=== PATIENT | female | born 1980 | race Caucasian/White ===

== ENCOUNTER 2017-03-18 13:38 | Emergency (ER) | payer OTHER, MEDICAID ==
[2017-03-18 13:48] VITALS: BP 124/76; PULSE 85; RESP 18; TEMP 98.2; O2SAT 95
--- NOTE | 2017-03-18 14:00 | EDPHY ---
H & P Stated Complaint: right ankle pain denies known trauma , yest night Time Seen by Provider: 03/18/17 13:49 HPI/ROS: CHIEF COMPLAINT: Right ankle pain HISTORY OF PRESENT ILLNESS: Patient is a 37-year-old obese female who comes to the emergency department complaining of right anterior ankle pain. She states that she does not remember injuring it in any particular way but that it began hurting yesterday and today she stayed home from work trying to elevated. She has been taking Tylenol and ibuprofen with moderate improvement. No swelling. No erythema. No fever. She does have a history of arthritis. REVIEW OF SYSTEMS: Constitutional: denies: chills, fever, recent illness, recent injury EENTM: denies: blurred vision, double vision, nose congestion Respiratory: denies: cough, shortness of breath Cardiac: denies: chest pain, irregular heart rate, lightheadedness, palpitations Gastrointestinal/Abdominal: denies: abdominal pain, diarrhea, nausea, vomiting, blood streaked stools Genitourinary: denies: dysuria, frequency, hematuria, pain Musculoskeletal: See HPI Skin: denies: lesions, rash, jaundice, bruising Neurological: denies: headache, numbness, paresthesia, tingling, dizziness, weakness Hematologic/Lymphatic: denies: blood clots, easy bleeding, easy bruising Immunologic/allergic: denies: HIV/AIDS, transplant EXAM: GENERAL: Well-appearing, well-nourished and in no acute distress. HEAD: Atraumatic, normocephalic. EYES: Pupils equal round and reactive to light, extraocular movements intact, sclera anicteric, conjunctiva are normal. ENT: TMs normal, nares patent, oropharynx clear without exudates. Moist mucous membranes. NECK: Normal range of motion, supple without lymphadenopathy or JVD. LUNGS: Breath sounds clear to auscultation bilaterally and equal. No wheezes rales or rhonchi. HEART: Regular rate and rhythm without murmurs, rubs or gallops. ABDOMEN: Soft, nontender, normoactive bowel sounds. No guarding, no rebound. No masses appreciated. BACK: No CVA tenderness, no spinal tenderness, step-offs or deformities EXTREMITIES: Pain to the anterior aspect of right ankle. No bony tenderness. No swelling or deformity. Mild pain with extension of the ankle. Normal pulses and sensation distally. NEUROLOGICAL: Cranial nerves II through XII grossly intact. Normal speech, normal gait. 5/5 strength, normal movement in all extremities, normal sensation PSYCH: Normal mood, normal affect. SKIN: Warm, dry, normal turgor, no visible rashes or lesions. Source: Patient Exam Limitations: No limitations - Personal History LMP (Females 10-55): Hysterectomy Current Tetanus Diphtheria and Acellular Pertussis (TDAP): Yes Tetanus Vaccine Date: 2014 - Medical/Surgical History Hx Asthma: No Hx Chronic Respiratory Disease: No Hx Diabetes: No Hx Cardiac Disease: No Hx Renal Disease: No Hx Cirrhosis: No Hx Alcoholism: No Hx HIV/AIDS: No Hx Splenectomy or Spleen Trauma: No Other PMH: tubal ligation, hysterectomy, Gall bladder removal, 1 kidney diverticulitis - Family History Significant Family History: No pertinent family hx - Social History Smoking Status: Never smoked Alcohol Use: Sober Drug Use: None Constitutional: Initial Vital Signs Temperature (C) 36.8 C 03/18/17 13:41 Heart Rate 85 03/18/17 13:41 Respiratory Rate 18 03/18/17 13:41 Blood Pressure 124/76 H 03/18/17 13:41 O2 Sat (%) 95 03/18/17 13:41 O2 Delivery Mode Room Air Allergies/Adverse Reactions: No Known Allergies Allergy (Verified 03/18/17 13:48) Home Medications: Medication Instructions Recorded Multivitamins [Multivitamin (*)] 1 each PO DAILY 07/09/14 Medical Decision Making - Diagnostics Imaging: Discussed imaging studies w/ order desk caller Radiologist ED Course/Re-evaluation: 2:19 p.m. the patient's x-ray Is reassuring. There does seem to be some edema. She does not remember any mechanism possibly spraining her ankle. It does not appear infected. Will place it in an Ahsan wrap for compression and encouraged ice and elevation and rest. I will give her orthopedic follow-up if it is not improving over the next couple of days. Differential Diagnosis: Partial list of the Differential diagnosis considered include but were not limited to; ankle sprain, arthritis and although unlikely based on the history and physical exam, I also considered gout, infection, fracture, dislocation, vascular problem. I discussed these differential diagnoses and the plan with the patient as well as the usual and expected course. The patient understands that the diagnosis is provisional and that in medicine we are not always correct and that further workup is often warranted. Usual and customary warnings were given. All of the patient's questions were answered. The patient was instructed to return to the emergency department should the symptoms at all worsen or return, otherwise to followup with the physician as we discussed. Departure - Departure Disposition: Home, Routine, Self-Care Clinical Impression: Acute right ankle pain Condition: Fair Instructions: Arthralgia (ED) Referrals: DR ANAYA [Other] - As per Instructions Bernardo Gonzalez MD [Medical Doctor] - 3-4 days, if not improved Stand Alone Forms: Work Excuse
== END 2017-03-18 14:28 | disposition home or self-care (01) ==
LOC: CED 13:38
DX: M25.571 Pain in right ankle and joints of right foot (principal)
CPT/HCPCS: 73610-PO